=== PATIENT | female | born 1935 | race Caucasian/White ===

== ENCOUNTER 2018-06-28 17:35 | Inpatient (IN) | payer OTHER ==
[2018-06-28] MEDS ORDERED: NS 2,600 ML IV ONE (17:53)
[2018-06-28] MEDS ORDERED: AZITHROMYCIN IV 500 MG in NS 250 ML IV ONE (17:54)
[2018-06-28] MEDS ORDERED: ACYCLOVIR 400 MG TAB PO ONE (17:55)
--- NOTE | 2018-06-28 17:55 | EDPHY ---
H & P Stated Complaint: sob/cough/hypoxia fever Time Seen by Provider: 06/28/18 17:46 HPI/ROS: CHIEF COMPLAINT: Cough, shortness of breath HISTORY OF PRESENT ILLNESS: Patient is an 82-year-old female who comes to the emergency department from [facility] with her daughter complaining of cough and shortness of breath. She initially presented to an urgent care who found her to be hypoxic and tachycardic and told her to come to the ER. Her saturations here triage were 86. Her cough has been productive of yellowish sputum. She has not had a fever. She denies any significant history of respiratory disease but does have a remote history of smoking. She denies any chest pain. No cardiac disease. Daughter states that her symptoms began on Sunday. Severity: Moderate Modifying factors: None REVIEW OF SYSTEMS: Constitutional: denies: chills, fever, recent illness, recent injury EENTM: denies: blurred vision, double vision, nose congestion Respiratory: See HPI Cardiac: denies: chest pain, irregular heart rate, lightheadedness, palpitations Gastrointestinal/Abdominal: denies: abdominal pain, diarrhea, nausea, vomiting, blood streaked stools Genitourinary: denies: dysuria, frequency, hematuria, pain Musculoskeletal: denies: joint pain, muscle pain Skin: denies: lesions, rash, jaundice, bruising Neurological: denies: headache, numbness, paresthesia, tingling, dizziness, weakness Hematologic/Lymphatic: denies: blood clots, easy bleeding, easy bruising Immunologic/allergic: denies: HIV/AIDS, transplant 10 systems reviewed and negative except as noted EXAM: GENERAL: Well-appearing, well-nourished and in no acute distress. HEAD: Atraumatic, normocephalic. EYES: Pupils equal round and reactive to light, extraocular movements intact, sclera anicteric, conjunctiva are normal. ENT: TMs normal, nares patent, oropharynx clear without exudates. Moist mucous membranes. NECK: Normal range of motion, supple without lymphadenopathy or JVD. LUNGS: Right lower lobe rhonchi, hypoxic HEART: Tachycardic without murmurs, rubs or gallops. ABDOMEN: Soft, nontender, normoactive bowel sounds. No guarding, no rebound. No masses appreciated. BACK: No CVA tenderness, no spinal tenderness, step-offs or deformities EXTREMITIES: Normal range of motion, no pitting or edema. No clubbing or cyanosis. NEUROLOGICAL: Cranial nerves II through XII grossly intact. Normal speech, normal gait. 5/5 strength, normal movement in all extremities, normal sensation , normal reflexes PSYCH: Normal mood, normal affect. SKIN: Warm, dry, normal turgor, no visible rashes or lesions. Source: Patient - Personal History Current Tetanus Diphtheria and Acellular Pertussis (TDAP): Yes - Medical/Surgical History Hx Asthma: No Hx Chronic Respiratory Disease: No Hx Diabetes: No Hx Cardiac Disease: No Hx Renal Disease: No Hx Cirrhosis: No Hx Alcoholism: No Hx HIV/AIDS: No Hx Splenectomy or Spleen Trauma: No Other PMH: CHRONIC UTI'S, DEMENTIA, Breast Ca with left mastectomy, insomnia, ( [place] SPEAKING). RESIDENT AT THE [facility] - Family History Significant Family History: Cancer - Social History Smoking Status: Former smoker Alcohol Use: None Drug Use: None Constitutional: Initial Vital Signs Temperature (C) 37.3 C 06/28/18 17:40 Heart Rate 124 H 06/28/18 17:40 Respiratory Rate 34 H 06/28/18 17:40 Blood Pressure 164/99 H 06/28/18 17:40 O2 Sat (%) 86 L 06/28/18 17:40 O2 Delivery Mode Nasal Cannula O2 (L/minute) 4 Allergies/Adverse Reactions: No Known Allergies Allergy (Verified 06/28/18 17:37) Home Medications: Medication Instructions Recorded Acetaminophen [Tylenol Tablet] 1,000 mg PO TID 06/02/14 Cyanocobalamin (Vitamin B-12) 500 mcg PO DAILY 06/02/14 [Vitamin B-12] Fluticasone Nasal [Flonase Nasal 1 spray EACHNARE BID PRN 06/02/14 Addis] Loperamide HCl [Loperamide] 2 mg PO QID PRN 06/02/14 Cholecalciferol Vit D3 [Vitamin D3 2,000 units PO DAILY 06/28/18 2000 units tab (OTC)] DULoxetine [Cymbalta 20 MG (RX)] 60 mg PO DAILY 06/28/18 Divalproex [Depakote Sprinkle 125 125 mg PO BID 06/28/18 MG (*)] Lidocaine 4%/Menthol 1% [Icy Hot 1 patch TD DAILY 06/28/18 Lidocaine/Menthol 4%/1% Patch (*)] traMADol [Ultram 50 mg (*)] 50 mg PO Q6 PRN 06/28/18 traZODone [traZODone 150MG (*)] 75 mg PO HS 06/28/18 Medical Decision Making - Diagnostics Imaging Results: Imaging Impressions Chest X-Ray 06/28/18 17:53 Impression: Early bronchopneumonia with small bilateral pleural effusions. Imaging: Discussed imaging studies w/ call center nurse Radiologist ED Course/Re-evaluation: 7:00 p.m. I discussed the case with Dr. Ovalle who will admit the medical service. I have begun treatment for pneumonia. The patient's lactate is negative. Heart rate has improved with fluids. Meets criteria for sepsis but not severe sepsis. Differential Diagnosis: Partial list of the Differential diagnosis considered include but were not limited to; pneumonia, upper respiratory tract infection is and although unlikely based on the history and physical exam, I also considered PE, acute coronary disease, sepsis. - Data Points Laboratory Results: Laboratory Results 06/28/18 18:21 06/28/18 18:21 06/28/18 06/28/18 06/28/18 18:21 18:21 18:21 WBC 14.75 10^3/uL H 10^3/uL (3.80-9.50) RBC 3.94 10^6/uL L 10^6/uL (4.18-5.33) Hgb 11.6 g/dL L g/dL (12.6-16.3) Hct 35.2 % L % (38.0-47.0) MCV 89.3 fL fL (81.5-99.8) MCH 29.4 pg pg (27.9-34.1) MCHC 33.0 g/dL g/dL (32.4-36.7) RDW 13.3 % % (11.5-15.2) Plt Count 206 10^3/uL 10^3/uL (150-400) MPV 8.5 fL L fL (8.7-11.7) Neut % (Auto) 83.5 % H % (39.3-74.2) Lymph % (Auto) 7.5 % L % (15.0-45.0) [place] % (Auto) 7.3 % % (4.5-13.0) Eos % (Auto) 0.3 % L % (0.6-7.6) Baso % (Auto) 0.2 % L % (0.3-1.7) Nucleat RBC Rel Count 0.0 % % (0.0-0.2) Absolute Neuts (auto) 12.33 10^3/uL H 10^3/uL (1.70-6.50) Absolute Lymphs (auto) 1.11 10^3/uL 10^3/uL (1.00-3.00) Absolute Monos (auto) 1.07 10^3/uL H 10^3/uL (0.30-0.80) Absolute Eos (auto) 0.04 10^3/uL 10^3/uL (0.03-0.40) Absolute Basos (auto) 0.03 10^3/uL 10^3/uL (0.02-0.10) Absolute Nucleated RBC 0.00 10^3/uL 10^3/uL (0-0.01) Immature Gran % 1.2 % H % (0.0-1.1) Immature Gran # 0.17 10^3/uL H 10^3/uL (0.00-0.10) PT 13.8 SEC SEC (12.0-15.0) INR 1.04 (0.83-1.16) APTT 30.1 SEC SEC (23.0-38.0) VBG Lactic Acid Sodium 134 mEq/L L mEq/L (135-145) Potassium 3.2 mEq/L L mEq/L (3.5-5.2) Chloride 101 mEq/L mEq/L (97-110) Carbon Dioxide 24 mEq/l mEq/l (22-31) Anion Gap 9 mEq/L mEq/L (6-14) BUN 17 mg/dL mg/dL (7-23) Creatinine 0.7 mg/dL mg/dL (0.6-1.0) Estimated GFR > 60 Glucose 158 mg/dL H mg/dL (70-100) Calcium 8.9 mg/dL mg/dL (8.5-10.4) Total Bilirubin 1.1 mg/dL mg/dL (0.1-1.4) 06/28/18 18:21 WBC RBC Hgb Hct MCV MCH MCHC RDW Plt Count MPV Neut % (Auto) Lymph % (Auto) [place] % (Auto) Eos % (Auto) Baso % (Auto) Nucleat RBC Rel Count Absolute Neuts (auto) Absolute Lymphs (auto) Absolute Monos (auto) Absolute Eos (auto) Absolute Basos (auto) Absolute Nucleated RBC Immature Gran % Immature Gran # PT INR APTT VBG Lactic Acid 1.2 mmol/L mmol/L (0.7-2.1) Sodium Potassium Chloride Carbon Dioxide Anion Gap BUN Creatinine Estimated GFR Glucose Calcium Total Bilirubin Medications Given: Divalproex Sodium (Depakote Sprinkle) 125 mg PO BID SRIRAM Stop: 12/25/18 20:59 Last Admin: 06/28/18 21:31 Dose: 125 mg Trazodone HCl (Trazodone) 75 mg PO HS SRIRAM Stop: 12/25/18 20:59 Last Admin: 06/28/18 21:31 Dose: 75 mg Discontinued Medications Acyclovir (Acyclovir) 400 mg PO EDNOW ONE Stop: 06/28/18 17:56 Last Admin: 06/28/18 18:49 Dose: 400 mg Ceftriaxone Sodium/Dextrose (Rocephin 1 Gm (Premix)) 50 mls @ 100 mls/hr IV EDNOW ONE PRN Reason: Protocol Stop: 06/28/18 18:22 Last Admin: 06/28/18 18:49 Dose: 50 mls Sodium Chloride (Ns) 2,600 mls @ 5,200 mls/hr 30 ml/kg infuse over 30 min ( 2600 ml) IV EDNOW ONE PRN Reason: Protocol Stop: 06/28/18 18:22 Last Admin: 06/28/18 18:25 Dose: 2,600 mls Azithromycin 500 mg/ Sodium (Chloride) 255 mls @ 255 mls/hr IV EDNOW ONE PRN Reason: Protocol Stop: 06/28/18 18:53 Last Admin: 06/28/18 19:57 Dose: 255 mls Departure - Departure Disposition: [facility] Inpatient Acute Clinical Impression: Pneumonia Qualifiers: Pneumonia type: due to unspecified organism Laterality: unspecified laterality Lung location: unspecified part of lung Qualified Code(s): J18.9 - Pneumonia, unspecified organism Sepsis Qualifiers: Sepsis type: sepsis due to unspecified organism Qualified Code(s): A41.9 - Sepsis, unspecified organism Condition: Fair
[2018-06-28 18:33] LABS: PLATELET COUNT 206 10^3/uL (150-400)
[2018-06-28 18:41] LABS: INR 1.04 (0.83-1.16); PROTIME(PATIENT) 13.8 SEC (12.0-15.0)
[2018-06-28] MEDS ORDERED: ALBUTEROL 60 PUFFS/8 GM MDI IH PRN (20:13)
[2018-06-28] MEDS ORDERED: oxyCODONE IR 5 MG TAB PO PRN (20:13)
[2018-06-28] MEDS ORDERED: ONDANSETRON DISINTEGRATING 4 MG TAB PO PRN (20:13)
[2018-06-28] MEDS ORDERED: ONDANSETRON 4 MG/2 ML VIAL IVP PRN (20:13)
[2018-06-28] MEDS ORDERED: LOPERAMIDE HCL 2 MG CAP PO PRN (20:59)
[2018-06-28] MEDS ORDERED: FLUTICASONE NASAL 120 SPRAYS/16 GM MDI EACHNARE PRN (20:59)
[2018-06-28] MEDS: DIVALPROEX NA 125 MG CAP.SPRINKLE PO SCH (21:31)
--- NOTE | 2018-06-28 21:55 | PDGENHP ---
History and Physical - Chief Complaint shortness of breath - History of Present Illness 82yo F resident at [facility] presents with worsening shortness of breath and productive cough. Symptoms started at least 5 days ago, maybe longer. Denies fevers/chills. Quit smoking a long time ago. Has been feeling very poorly overall. Reports numerous episodes/day of diarrhea as well. She initially presented to an urgent care where she was found to be hypoxic and tachycardic so sent to [facility] ED where she was satting 86% on room air. A chest x- ray showed pneumonia so she was given ceftriaxone and azithromycin. Case discussed with ED physician Wayne Puente. History Information - Allergies/Home Medication List Allergies/Adverse Reactions: No Known Allergies Allergy (Verified 06/28/18 17:37) Home Medications: Acetaminophen [Tylenol Tablet] 1,000 mg PO TID 06/02/14 [Last Taken Unknown] Cyanocobalamin (Vitamin B-12) [Vitamin B-12] 500 mcg PO DAILY 06/02/14 [Last Taken Unknown] Fluticasone Nasal [Flonase Nasal [place]] 1 spray EACHNARE BID PRN 06/02/14 [Last Taken Unknown] Loperamide HCl [Loperamide] 2 mg PO QID PRN 06/02/14 [Last Taken Unknown] Cholecalciferol Vit D3 [Vitamin D3 2000 units tab (OTC)] 2,000 units PO DAILY [Last Taken Unknown] DULoxetine [Cymbalta 20 MG (RX)] 60 mg PO DAILY 06/28/18 [Last Taken Unknown] Divalproex [Depakote Sprinkle 125 MG (*)] 125 mg PO BID 06/28/18 [Last Taken Unknown] Lidocaine 4%/Menthol 1% [Icy Hot Lidocaine/Menthol 4%/1% Patch (*)] 1 patch TD DAILY 06/28/18 [Last Taken Unknown] traMADol [Ultram 50 mg (*)] 50 mg PO Q6 PRN 06/28/18 [Last Taken Unknown] traZODone [traZODone 150MG (*)] 75 mg PO HS 06/28/18 [Last Taken Unknown] I have personally reviewed and updated: family history, medical history, social history, surgical history - Past Medical History Additional medical history: chronic UTIs, dementia, breast cancer s/p mastectomy - Surgical History Additional surgical history: left mastectomy - Family History Positive for: non-pertinent - Social History Smoking Status: Former smoker Alcohol Use: None Additional social history: Lives in [facility] living Review of Systems Review of Systems: ROS: 10pt was reviewed & negative except for what was stated in HPI & below Physical Exam Physical Exam: Temp Pulse Resp BP Pulse Ox 37.3 C 99 30 H 154/75 H 91 L 06/28/18 21:11 06/28/18 21:11 06/28/18 21:11 06/28/18 21:11 06/28/18 21:11 O2 (L/minute) 3 Constitutional: no apparent distress, appears nourished, not in pain Eyes: PERRL, anicteric sclera, EOMI Ears, Nose, Mouth, Throat: moist mucous membranes, hearing normal, ears appear normal, no oral mucosal ulcers Cardiovascular: no murmur, rub, or gallop, tachycardia, No edema Respiratory: no respiratory distress, reduced air movement, rhonchi (diffuse), No expiratory wheeze Gastrointestinal: normoactive bowel sounds, soft, non-tender abdomen, no palpable masses Genitourinary: no bladder fullness, no bladder tenderness Skin: warm, normal color, no rashes or abrasions, no fluctuance, no induration, No mottled Musculoskeletal: full muscle strength, no muscle tenderness, normal joint ROM, no joint effusions Neurologic: AAOx3 Psychiatric: interacting appropriately Lab Data & Imaging Review 06/28/18 18:21 06/28/18 18: WBC 14.75 10^3/uL (3.80-9.50) H 06/28/18 18: RBC 3.94 10^6/uL (4.18-5.33) L 06/28/18 18: Hgb 11.6 g/dL (12.6-16.3) L 06/28/18 18: Hct 35.2 % (38.0-47.0) L 06/28/18 18: MCV 89.3 fL (81.5-99.8) 06/28/18 18: MCH 29.4 pg (27.9-34.1) 06/28/18 18: MCHC 33.0 g/dL (32.4-36.7) 06/28/18 18:21 RDW 13.3 % (11.5-15.2) 06/28/18 18:21 Plt Count 206 10^3/uL (150-400) 06/28/18 18:21 MPV 8.5 fL (8.7-11.7) L 06/28/18 18:21 Neut % (Auto) 83.5 % (39.3-74.2) H 06/28/18 18:21 Lymph % (Auto) 7.5 % (15.0-45.0) L 06/28/18 18:21 [place] % (Auto) 7.3 % (4.5-13.0) 06/28/18 18:21 Eos % (Auto) 0.3 % (0.6-7.6) L 06/28/18 18:21 Baso % (Auto) 0.2 % (0.3-1.7) L 06/28/18 18:21 Nucleat RBC Rel Count 0.0 % (0.0-0.2) 06/28/18 18:21 Absolute Neuts (auto) 12.33 10^3/uL (1.70-6.50) H 06/28/18 18:21 Absolute Lymphs (auto) 1.11 10^3/uL (1.00-3.00) 06/28/18 18:21 Absolute Monos (auto) 1.07 10^3/uL (0.30-0.80) H 06/28/18 18:21 Absolute Eos (auto) 0.04 10^3/uL (0.03-0.40) 06/28/18 18:21 Absolute Basos (auto) 0.03 10^3/uL (0.02-0.10) 06/28/18 18:21 Absolute Nucleated RBC 0.00 10^3/uL (0-0.01) 06/28/18 18:21 Immature Gran % 1.2 % (0.0-1.1) H 06/28/18 18:21 Immature Gran # 0.17 10^3/uL (0.00-0.10) H 06/28/18 18:21 PT 13.8 SEC (12.0-15.0) 06/28/18 18:21 INR 1.04 (0.83-1.16) 06/28/18 18:21 APTT 30.1 SEC (23.0-38.0) 06/28/18 18:21 VBG Lactic Acid 1.2 mmol/L (0.7-2.1) 06/28/18 18:21 Sodium 134 mEq/L (135-145) L 06/28/18 18:21 Potassium 3.2 mEq/L (3.5-5.2) L 06/28/18 18:21 Chloride 101 mEq/L (97-110) 06/28/18 18:21 Carbon Dioxide 24 mEq/l (22-31) 06/28/18 18:21 Anion Gap 9 mEq/L (6-14) 06/28/18 18:21 BUN 17 mg/dL (7-23) 06/28/18 18:21 Creatinine 0.7 mg/dL (0.6-1.0) 06/28/18 18:21 Estimated GFR > 60 06/28/18 18:21 Glucose 158 mg/dL (70-100) H 06/28/18 18:21 Calcium 8.9 mg/dL (8.5-10.4) 06/28/18 18:21 Total Bilirubin 1.1 mg/dL (0.1-1.4) 06/28/18 18:21 Urine Color YELLOW 06/28/18 19:48 Urine Appearance HAZY 06/28/18 19:48 Urine pH 5.0 (5.0-7.5) 06/28/18 19:48 Ur Specific [place] 1.029 (1.002-1.030) 06/28/18 19:48 Urine Protein 2+ (NEGATIVE) H 06/28/18 19:48 Urine Ketones 1+ (NEGATIVE) H 06/28/18 19:48 Urine Blood 1+ (NEGATIVE) H 06/28/18 19:48 Urine Nitrate NEGATIVE (NEGATIVE) 06/28/18 19:48 Urine Bilirubin NEGATIVE (NEGATIVE) 06/28/18 19:48 Urine Urobilinogen 4.0 EU (0.2-1.0) H 06/28/18 19:48 Ur Leukocyte Esterase NEGATIVE (NEGATIVE) 06/28/18 19:48 Urine RBC 10-15 /hpf (0-3) H 06/28/18 19:48 Urine WBC 3-5 /hpf (0-3) H 06/28/18 19:48 Ur Epithelial Cells TRACE /lpf (NONE-1+) 06/28/18 19:48 Urine Mucus 1+ /lpf (NONE-1+) 06/28/18 19:48 Urine Glucose NEGATIVE (NEGATIVE) 06/28/18 19:48 Visualized and Interpreted Chest x-ray results: Yes Visualized and Interpreted imaging results: Yes Interpretation: CXR: patchy bilateral alveolar infiltrates in lower lobes, trace bilateral pleural effusions Assessment & Plan Assessment: 82yo F resident at [facility] presents with worsening shortness of breath and productive cough found to have pneumonia and sepsis. Plan: 1. Bilateral bronchopneumonia: Will treat for CAP - Ceftriaxone, azithromycin - Respiratory viral panel pending 2. Sepsis: Suspect pulmonary source. BP ok. - IVF, follow blood cultures 3. Acute hypoxemic respiratory insufficiency: Requiring 2-4L. Related to #1. - Wean O2 as able 4. Diarrhea: Lives in senior care so at greater risk for C diff. - Check GI PCR 5. Hypokalemia: Likely r/t GI losses - Replete and place on protocol. 6. Depression: On cymbalta 7. Chronic pain: Continue tramadol. 8. Breast cancer s/p mastectomy 9. Reported dementia: She is answering questions appropriately and oriented for me. 10. Depakote use: Unclear why she is on this. Will continue, ask daughter in AM. VTE ppx: LMWH Code: full Diet: regular Dispo: Admit under observation, re-assess need for admission tomorrow
[2018-06-28] MEDS ORDERED: PROTOCOL POTASSIUM 1 DOSE MISC PRN (22:15)
[2018-06-29 05:38] LABS: PLATELET COUNT 201 10^3/uL (150-400)
[2018-06-29] MEDS ORDERED: POTASSIUM CL 10 MEQ TAB PO ONE ×2 (08:09→20:19)
[2018-06-29] MEDS: DULoxetine 60 MG CAP PO SCH (08:21)
[2018-06-29] MEDS: ACETAMINOPHEN 325 MG TAB PO PRN ×2 (08:48→23:16)
[2018-06-29] MEDS: ENOXAPARIN 40 MG/0.4 ML SYR SC SCH (08:49)
[2018-06-29] MEDS: LIDOCAINE 4%/MENTHOL 1% PATCH TD SCH (08:50)
[2018-06-29] MEDS: DIVALPROEX NA 125 MG CAP.SPRINKLE PO SCH ×2 (08:53→20:25)
[2018-06-29] MEDS ORDERED: AZITHROMYCIN IV 500 MG in NS 250 ML IV SCH (09:00)
--- NOTE | 2018-06-29 11:02 | HOSPPROG ---
Hospitalist Progress Note Assessment/Plan: 82yo F resident who lives at assisted living presents with worsening shortness of breath and productive cough found to have pneumonia and sepsis. First encounter, chart reviewed. *Bilateral bronchopneumonia: Will treat for CAP -patient removed IV, will change abx to oral Levaquin -respiratory panel is +for human rhinovirus, enterovirus *suspect a component of COPD -patient has a long hx of smoking -add duonebs * Sepsis -due to the above *Acute hypoxemic respiratory insufficiency -on 3 liters * Diarrhea -no c/o of this * Hypokalemia: Likely r/t GI losses * Depression -Cymbalta *hyponatremia due to hypovolemia -improved w hydration * Chronic pain -tramadol. * hx of Breast cancer s/p mastectomy * dementia-she is alert and appropriate when I evaluated her, impulsive Subjective: Hannah says she feels poorly. Objective: Vital Signs Temp Pulse Resp BP Pulse Ox 36.7 C 87 20 141/75 H 89 L 06/29/18 02:53 06/29/18 08:00 06/29/18 08:00 06/29/18 08:00 06/29/18 08:00 Microbiology 06/28/18 20:44 Respiratory Panel (PCR) - Final Nasal, Sinus - Swab Human Rhinovirus/Enterovirus Laboratory Results 06/29/18 04:30 06/29/18 04:30 06/28/18 06/29/18 06/30/18 05:59 05:59 05:59 Intake Total 3150 Output Total 200 Balance 2950 PT 13.8 SEC (12.0-15.0) 06/28/18 18:21 INR 1.04 (0.83-1.16) 06/28/18 18:21 - Physical Exam Constitutional: appears nourished, not in pain, chronically ill appearing Eyes: PERRL Ears, Nose, Mouth, Throat: hearing normal Cardiovascular: regular rate and rhythym Respiratory: no respiratory distress, expiratory wheeze, rhonchi Skin: warm Musculoskeletal: generalized weakness Psychiatric: interacting appropriately ICD10 Worksheet Patient Problems: Problems Problem Status Onset Pneumonia Acute Sepsis Acute
[2018-06-29] MEDS: traMADol 50 MG TAB PO PRN (11:50)
[2018-06-29] MEDS: IPRATROPIUM/ALBUTEROL 3 ML DEYVIAL IH SCH ×3 (11:55→21:42)
--- NOTE | 2018-06-29 17:05 | ASMTCMCOM ---
CM Note CM Note Notes: Pt admitted for septic pneumonia. She lives at [facility] assisted [facility] and is planning a move to [facility] on Sunday. Assisted living at [facility] is not robust, including basically only meals. PT and OT are recommending SNF. Message was left for pt's dtr Zoila who is decision maker to determine where referrals should be sent for SNF. Pt likely to discharge in 1 - 2 days. CM to follow, D/C Plan: SNF pending family choice Date Signed: 06/29/2018 05:04 PM Electronically Signed By:Stacy Urias
[2018-06-29] MEDS: PATCH REMOVAL 1 EA PATCH TD SCH (20:36)
[2018-06-30] MEDS: IPRATROPIUM/ALBUTEROL 3 ML DEYVIAL IH SCH ×4 (06:16→21:42)
[2018-06-30] MEDS: LIDOCAINE 4%/MENTHOL 1% PATCH TD SCH (07:52)
[2018-06-30] MEDS: DIVALPROEX NA 125 MG CAP.SPRINKLE PO SCH ×2 (07:53→20:52)
[2018-06-30] MEDS: DULoxetine 60 MG CAP PO SCH (07:53)
[2018-06-30] MEDS: ENOXAPARIN 40 MG/0.4 ML SYR SC SCH (07:53)
[2018-06-30] MEDS: traMADol 50 MG TAB PO PRN (07:53)
[2018-06-30] MEDS ORDERED: POTASSIUM CL 10 MEQ TAB PO ONE ×3 (08:23→19:35)
--- NOTE | 2018-06-30 08:43 | HOSPPROG ---
Hospitalist Progress Note Assessment/Plan: 82yo F resident who lives at assisted living presents with worsening shortness of breath and productive cough found to have pneumonia and sepsis. *Bilateral bronchopneumonia: Will treat for CAP -patient removed IV, will change abx to oral Levaquin -respiratory panel is +for human rhinovirus, enterovirus -blood cx show no growth -add Mucinex *suspect a component of COPD -patient has a long hx of smoking -add duonebs * Sepsis -due to the above *Acute hypoxemic respiratory insufficiency -on 3 liters * Diarrhea -no c/o of this * Hypokalemia: Likely r/t GI losses * Depression -Cymbalta *hyponatremia due to hypovolemia -improved w hydration * Chronic pain -tramadol. * hx of Breast cancer s/p mastectomy * dementia-she is alert and appropriate but is very impulsive and gets up frequently *plan: she will require another midnight stay due to ongoing oxygen requirements , pna Subjective: Hannah appreciates care here in the hospital. Objective: Vital Signs Temp Pulse Resp BP Pulse Ox 36.6 C 93 22 H 159/86 H 91 L 06/30/18 08:00 06/30/18 08:00 06/30/18 08:00 06/30/18 08:00 06/30/18 08:00 Microbiology 06/28/18 20:44 Respiratory Panel (PCR) - Final Nasal, Sinus - Swab Human Rhinovirus/Enterovirus Laboratory Results 06/29/18 04:30 06/30/18 05:09 06/29/18 06/30/18 07/01/18 05:59 05:59 05:59 Intake Total 3150 900 Output Total 200 Balance 2950 900 PT 13.8 SEC (12.0-15.0) 06/28/18 18:21 INR 1.04 (0.83-1.16) 06/28/18 18:21 - Physical Exam Constitutional: appears nourished, not in pain, chronically ill appearing Eyes: PERRL Ears, Nose, Mouth, Throat: hearing normal Cardiovascular: regular rate and rhythym Respiratory: no respiratory distress, rhonchi (scattered throughout both lungs) Skin: warm Musculoskeletal: generalized weakness Neurologic: other (alert but very impulsive, answers my questions appropriately) ICD10 Worksheet Patient Problems: Problems Problem Status Onset Pneumonia Acute Sepsis Acute
[2018-06-30] MEDS: guaiFENesin 600 MG TAB.ER PO SCH ×2 (13:49→20:52)
--- NOTE | 2018-06-30 14:16 | PDMN ---
Medical Necessity Medical necessity: [facility] M282, CAP, A-2 days: 82 yo w/ sepsis r/t B/L bronchopneumonia, initially OBS for monitoring and treatment but pt cont w/ oxygen needs, 3L, to keep sat>90%, requires ongoing IV antibx, cont to be intermittently tachypneac. Meets [facility] IP criteria for CAP w/ ongoing hypoxemia, tachypnea and ongoing IV antbx. Change to IP status 06/30/18@1325 per [employer] order.
--- NOTE | 2018-06-30 14:51 | ASMTCMCOM ---
CM Note CM Note Notes: CM call to alix Gonzalez, [phone] and discussed SNF placement as patient will likely discharge in 1-2 days. First choice is [facility], referrals sent to area SNF's as well. [facility] able to accept, CM called and updated alix Gonzalez to update on acceptance. Patient to discharge to [facility] when medically stable. CM to follow. D/C Plan: SNF Date Signed: 06/30/2018 02:50 PM Electronically Signed By:Marquita Panchal
[2018-06-30] MEDS: PATCH REMOVAL 1 EA PATCH TD SCH (22:51)
[2018-06-30] MEDS: ACETAMINOPHEN 325 MG TAB PO PRN (23:35)
[2018-07-01] MEDS: IPRATROPIUM/ALBUTEROL 3 ML DEYVIAL IH SCH ×3 (05:42→17:17)
[2018-07-01] MEDS: ENOXAPARIN 40 MG/0.4 ML SYR SC SCH (08:40)
[2018-07-01] MEDS: LIDOCAINE 4%/MENTHOL 1% PATCH TD SCH (08:40)
[2018-07-01] MEDS: ACETAMINOPHEN 325 MG TAB PO PRN ×3 (08:42→21:07)
[2018-07-01] MEDS: guaiFENesin 600 MG TAB.ER PO SCH ×2 (08:43→20:46)
[2018-07-01] MEDS: DIVALPROEX NA 125 MG CAP.SPRINKLE PO SCH ×2 (08:43→20:47)
[2018-07-01] MEDS: DULoxetine 60 MG CAP PO SCH (08:44)
[2018-07-01] MEDS: FLUTICASONE/SALMETER 250/50MCG DISKUS IH SCH ×2 (09:14→21:31)
[2018-07-01] MEDS: traMADol 50 MG TAB PO PRN ×2 (10:56→17:34)
--- NOTE | 2018-07-01 13:10 | HOSPPROG ---
Hospitalist Progress Note Assessment/Plan: 82yo F resident who lives at assisted living presents with worsening shortness of breath and productive cough found to have pneumonia and sepsis. *Bilateral bronchopneumonia: Will treat for CAP -patient removed IV, will change abx to oral Levaquin -respiratory panel is +for human rhinovirus, enterovirus -blood cx show no growth -add Mucinex *suspect a component of COPD -patient has a long hx of smoking -add duonebs and Advair * Sepsis -due to the above *Acute hypoxemic respiratory insufficiency -on 3 liters but did a room air challenge and her oxygen levels are 92% * Diarrhea -no c/o of this * Hypokalemia: Likely r/t GI losses * Depression -Cymbalta *hyponatremia due to hypovolemia -improved w hydration * Chronic pain -tramadol. * hx of Breast cancer s/p mastectomy * dementia -she knows where she is and why she is here, but is impulsive, she has a sitter only because she gets up frequently (her gait is stable when I evaluated her), she doesn't wander and is very cooperative. *plan: hopefully to [facility] tomorrow, family has a dementia unit they are arranging for long term care pharmacist care Subjective: Hannah feels still tired and short of breath. Appetite is good. Objective: Vital Signs Temp Pulse Resp BP Pulse Ox 36.9 C 95 19 158/65 H 96 07/01/18 11:25 07/01/18 11:25 07/01/18 11:25 07/01/18 11:25 07/01/18 11:25 Laboratory Results 07/01/18 05:41 06/30/18 07/01/18 07/02/18 05:59 05:59 05:59 Intake Total 3500 1450 Balance 3500 1450 PT 13.8 SEC (12.0-15.0) 06/28/18 18:21 INR 1.04 (0.83-1.16) 06/28/18 18:21 - Physical Exam Constitutional: no apparent distress, appears nourished Eyes: PERRL Ears, Nose, Mouth, Throat: hearing normal Cardiovascular: regular rate and rhythym Respiratory: no respiratory distress, reduced air movement, expiratory wheeze ( few scattered, lung sounds much improved) Skin: warm Musculoskeletal: generalized weakness Neurologic: other (alert and oriented to place, herself, why she is here but is very impulsive) Psychiatric: interacting appropriately, poor memory ICD10 Worksheet Patient Problems: Problems Problem Status Onset Pneumonia Acute Sepsis Acute chronic disease mgmt/transitional care Acute
[2018-07-01] MEDS: PATCH REMOVAL 1 EA PATCH TD SCH (20:47)
[2018-07-01] MEDS ORDERED: POTASSIUM CL 10 MEQ TAB PO ONE (20:54)
[2018-07-01] MEDS ORDERED: IPRATROPIUM/ALBUTEROL 3 ML DEYVIAL IH PRN (22:35)
[2018-07-02] MEDS: DULoxetine 60 MG CAP PO SCH (08:15)
[2018-07-02] MEDS: DIVALPROEX NA 125 MG CAP.SPRINKLE PO SCH (08:21)
[2018-07-02] MEDS: guaiFENesin 600 MG TAB.ER PO SCH (08:21)
[2018-07-02] MEDS: FLUTICASONE/SALMETER 250/50MCG DISKUS IH SCH (08:25)
[2018-07-02] MEDS: LIDOCAINE 4%/MENTHOL 1% PATCH TD SCH (08:27)
[2018-07-02] MEDS: ENOXAPARIN 40 MG/0.4 ML SYR SC SCH (08:31)
[2018-07-02] MEDS: ACETAMINOPHEN 325 MG TAB PO PRN (08:32)
--- NOTE | 2018-07-02 11:46 | PDIAF ---
- Diagnosis Diagnosis: PNA Code Status: Full Code - Medication Management Discharge Medications: electronically signed and located in the Home Medication List. PICC Care - Routine: N/A - Orders Services needed: Registered Nurse, Physical Therapy, Occupational Therapy Isolation Type: Droplet Isolation Diet Recommendation: no restrictions on diet - Follow Up Care Current Providers and Referrals: NONE *PRIMARY CARE P,. [Primary Care Provider] - As per Instructions
--- NOTE | 2018-07-02 12:14 | ASMTLACE ---
LACE Length of stay for Answers: 4-6 days current admission Acuity / Level of Answers: Yes Care: Did the patient have an inpatient admission? Comorbidities - select Answers: Chronic pulmonary disease all that apply Dementia Score: 12 Date Signed: 07/02/2018 12:13 PM Electronically Signed By:REGAN Decker
[2018-07-02] MEDS: traMADol 50 MG TAB PO PRN (12:19)
--- NOTE | 2018-07-02 12:21 | ASMTDCNOTE ---
Case Management Discharge Discharge Order Complete? Answers: Yes Patient to Obtain Answers: Other Notes: [facility] Medications Transportation Arranged Answers: Other Notes: [facility] w/c transport Transport will Pick (Date 07/02/2018 04:00 PM & Time) EMTALA Complete Answers: No Case Management Transport Answers: No Form Complete Faxed Final Orders Answers: Yes Agency/Facility Transfer Answers: Yes Report Printed & Faxed to Receiving Agency Family Notified Answers: Yes Discharge Comments Notes: Pts case discussed w/ Tahmina Mora NP. Pt is being d/c'd today. CM notified pts of the d/c. CM coordinated d/c w/ Chasity at [facility]. DC orders sent. HUNG Krueger will call to give report. CM available for changes. Plan: [facility] Date Signed: 07/02/2018 12:21 PM Electronically Signed By:REGAN Decker
--- NOTE | 2018-07-02 12:22 | ASDISCHSUM ---
Discharge Information Plan Status:SNF Medically Cleared to Leave: Discharge Date: D/C Disposition: ADT D/C Disposition:Fdc Facility Projected Discharge Date:07/01/2018 11:00 AM Transportation at D/C: Discharge Delay Reason: Follow-Up Date:07/01/2018 11:00 AM Discharge Slot: Final Diagnosis: Placement Information Referral Type:*Longterm/SNF Referral ID:[id number] Provider Name:[facility] Address 1:[address] Address 2: City:[place] Selection Factors: State:[place] Patient Contact Information Contact Name:SEVERINO Relationship: Address:[address] City:[place] Alternate Phone: State/Zip Code:[place] [phone] Email: Financial Information Financial Class:Medicare Primary Plan Desc:MEDICARE INPATIENT Primary Plan Number:[id number] Secondary Plan Desc:[employer]IL[employer]UNO MEDICARE Secondary Plan Number:[id number] Assessment Information [facility] CM Progress Note CM Note CM Note Notes: Pt admitted for septic pneumonia. She lives at [facility] and is planning a move to [facility] on Sunday. Assisted living at [facility] is not robust, including basically only meals. PT and OT are recommending SNF. Message was left for pt's dtr Zoila who is decision maker to determine where referrals should be sent for SNF. Pt likely to discharge in 1 - 2 days. CM to follow, D/C Plan: SNF pending family choice Date Signed: 06/29/2018 05:04 PM Electronically Signed By:Stacy Urias KIME SANYA Length of stay for Answers: 4-6 days current admission Acuity / Level of Answers: Yes Care: Did the patient have an inpatient admission? Comorbidities - select Answers: Chronic pulmonary disease all that apply Dementia Score: 12 Date Signed: 07/02/2018 12:13 PM Electronically Signed By:REGAN Decker [facility] CM Progress Note CM Note CM Note Notes: CM call to alix Gonzalez, [phone] and discussed SNF placement as patient will likely discharge in 1-2 days. First choice is [facility], referrals sent to [facility] SNF's as well. [facility] able to accept, CM called and updated alix Gonzalez to update on acceptance. Patient to discharge to [facility] when medically stable. CM to follow. D/C Plan: SNF Date Signed: 06/30/2018 02:50 PM Electronically Signed By:Marquita Panchal Case Management Discharge Plan Note Case Management Discharge Discharge Order Complete? Answers: Yes Patient to Obtain Answers: [facility] Transportation Arranged Answers: [facility] Transport will Pick (Date 07/02/2018 04:00 PM & Time) FREDALA Complete Answers: No Case Management Transport Answers: No Form Complete Faxed Final Orders Answers: Yes Agency/Facility Transfer Answers: Yes Report Printed & Faxed to Receiving Agency Family Notified Answers: Yes Discharge Comments Notes: Pts case discussed w/ Tamhina Mora NP. Pt is being d/c'd today. CM notified pts of the d/c. CM coordinated d/c w/ Chasity at [facility]. DC orders sent. HUNG Krueger will call to give report. CM available for changes. Plan: [facility] Date Signed: 07/02/2018 12:21 PM Electronically Signed By:REGAN Decker Intervention Information Intervention Type:*IM-Signed Date of Service:07/02/2018 12:15 PM Patient Type:Inpatient Staff Member:Mayte Bourgeois Hours: Discipline: Severity: Comment:
--- NOTE | 2018-07-02 15:30 | GDS ---
DISCHARGE DIAGNOSES: 1. Bilateral bronchial pneumonia. 2. Chronic obstructive pulmonary disease. 3. Sepsis. 4. Acute hypoxemic respiratory failure. 5. Diarrhea. 6. Hypokalemia. 7. Depression. 8. Hyponatremia. 9. Chronic pain. 10. History of breast cancer. 11. Dementia. PHYSICAL EXAM: GENERAL: The patient is arousable. VITAL SIGNS: Afebrile at 36.6, pulse is 96, respi ratory rate is 18, blood pressure 131/83, saturating 91% on room air. I have seen and evaluated the patient on the day of discharge. HOSPITAL COURSE: The patient is an 82-year-old presents to the emergency room with complaints of wor sening shortness of breath, evaluated and diagnosed with: 1. Bilateral bronchial pneumonia. During this hospitalization, the patient received antibiotic ther apy. Was noted to be positive for human rhinovirus, enterovirus. Blood cultures have been without g rowth. Symptoms have improved. 2. Likely underlying component of COPD. DuoNeb and Advair have been added. 3. Sepsis. This is resolved. 4. Acute hypoxemic respiratory insufficiency. The patient is on room air at this time. 5. Diarrhea. This is stable. 6. Hypokalemia, resolved. 7. Depression, baseline. 8. Hyponatremia due to hypovolemia, improved with hydration. 9. Chronic pain. Continue tramadol. 10. Dementia. The patient is at her baseline. 11. Disposition: The patient will go to [facility] for further rehabilitation and management. There are no pending studies. DISCHARGE MEDICATIONS: Please refer to EMR form. I have not discontinued the patient's previously pr escribed home medications to the best of my knowledge. New medications include albuterol, Advair, Mu cinex, Levaquin. I spent greater than 35 minutes in the care, coordination, and management of patient's disposition. Jake nash-up with primary care physician. /[id number]/MODL
[2018-07-02 16:40] VITALS: BP 137/67
== END 2018-07-02 17:05 | DRG 871 ==
LOC: F3E 21:00 → OBSVTOIN 06-30 13:25 → F3E 07-01 15:28
PROVIDERS: ADMIT Internal Medicine; ATTEND Internal Medicine
DX: A41.9 Sepsis, unspecified organism (principal); J18.0 Bronchopneumonia, unspecified organism; J96.01 Acute respiratory failure with hypoxia; E87.6 Hypokalemia; E87.1 Hypo-osmolality and hyponatremia; B97.89 Other viral agents as the cause of diseases classified elsewhere; B97.10 Unspecified enterovirus as the cause of diseases classified elsewhere; J44.9 Chronic obstructive pulmonary disease, unspecified; R19.7 Diarrhea, unspecified; G89.29 Other chronic pain; F03.90 Unspecified dementia, unspecified severity, without behavioral disturbance, psychotic disturbance, mood disturbance, and anxiety; F32.9 Major depressive disorder, single episode, unspecified; Z85.3 Personal history of malignant neoplasm of breast; Z87.891 Personal history of nicotine dependence; Z87.440 Personal history of urinary (tract) infections
CPT/HCPCS: 96365; 97116-GP; 97161-GP; 97166-GO; 97530-GP; 97535-GO; G0378; J0456; J0696; J1650